=== PATIENT | male | born 1945 | race Caucasian/White ===

== ENCOUNTER 2021-06-16 18:51 | Outpatient (CLI) | payer OTHER, SELFPAY ==
[2021-06-19 12:14] LABS: PSA, Ultrasensitive 0.99 ng/mL (<= 6.5)
== END 2021-06-16 18:52 | disposition home or self-care (01) ==
LOC: LBO 19:05
PROVIDERS: PCP Internal Medicine; Visit Provider Urology
DX: C61 Malignant neoplasm of prostate (principal)
CPT/HCPCS: 36415; 84153

== ENCOUNTER 2023-04-10 13:44 | Outpatient (CLI) | payer OTHER, SELFPAY ==
[2023-04-10 14:18] LABS: Abs Immature Grans 0.21 10^3/uL (0.0-0.06); Absolute Basophil Count 0.05 10^3/uL (0.0-0.2); Absolute Eosinophil Count 0.04 10^3/uL (0.0-0.7); Absolute Lymphocyte Count 0.57 10^3/uL (1.2-3.4); Absolute Monocyte Count 0.54 10^3/uL (0.1-0.8); Basophils % 0.7; Eosinophils % 0.5; HCT 40.8 % (40.0-50.0); HGB 12.7 g/dL (13.5-17.5); Immature Grans % 2.8; Lymphocytes % 7.7; MCH 24.3 pg (27.0-33.0); MCHC 31.1 % (32.0-36.0); MCV 78 fL (80-95); MPV 9.8 fL (8.0-11.0); Monocytes % 7.3; Platelet Count 225 10^3/uL (130-400); RBC 5.22 10^6/uL (4.36-5.78); RDW 16.6 % (11.8-14.1); RDW-SD 45.1 fL; WBC 7.41 10^3/uL (4.4-10.8)
[2023-04-10 15:24] LABS: ALT 22 U/L (16-63); AST 16 U/L (15-37); Albumin 3.9 g/dL (3.4-5.0); Alkaline Phosphatase 161 U/L (46-116); Anion Gap 11.2 mmol/L (3-11); BUN 19 mg/dL (7-18); Bilirubin, Total 0.7 mg/dL (0.2-1.0); CO2 24.8 mmol/L (21.0-32.0); CREATININE 1.5 mg/dL (0.70-1.30); Calcium 9.1 mg/dL (8.5-10.1); Chloride 104 mmol/L (98-107); Estimated GFR 47.95 (mL/min/1.73m2); Glucose 130 mg/dL (74-106); Potassium 4.4 mmol/L (3.5-5.1); Sodium 140 mmol/L (136-145)
[2023-04-12 12:14] LABS: PSA, Ultrasensitive 8.5 ng/mL (<= 6.5)
[2023-04-14 16:25] LABS: Testosterone, Total 180 ng/dL (240-950)
== END 2023-04-10 13:45 ==
PROVIDERS: PCP Internal Medicine; Visit Provider Radiology Radiation Oncology
DX: C61 Malignant neoplasm of prostate (principal)
CPT/HCPCS: 36415; 80053; 84153; 84403; 85025

== ENCOUNTER → 2023-04-24 00:56 | Outpatient (CLI) | payer OTHER, SELFPAY ==
[2023-04-24] MEDS: Normal Saline - Diluent 50 ML VIAL IJ (11:06)
[2023-04-24] MEDS: Omnipaque 350 MG/ML 500 ML BTL-Imaging package 100 ML IJ (11:07)
[2023-04-24 11:10] LABS: Abs Immature Grans 0.18 10^3/uL (0.0-0.06); Absolute Basophil Count 0.03 10^3/uL (0.0-0.2); Absolute Eosinophil Count 0.12 10^3/uL (0.0-0.7); Absolute Lymphocyte Count 0.49 10^3/uL (1.2-3.4); Absolute Monocyte Count 0.52 10^3/uL (0.1-0.8); Basophils % 0.4; Eosinophils % 1.8; HCT 38.5 % (40.0-50.0); HGB 11.6 g/dL (13.5-17.5); Immature Grans % 2.6; Lymphocytes % 7.2; MCH 23.9 pg (27.0-33.0); MCHC 30.1 % (32.0-36.0); MCV 79 fL (80-95); MPV 9.9 fL (8.0-11.0); Monocytes % 7.6; Neutrophils % 80.4; Platelet Count 208 10^3/uL (130-400); RBC 4.86 10^6/uL (4.36-5.78); RDW-SD 45.7 fL; WBC 6.84 10^3/uL (4.4-10.8)
[2023-04-24 11:28] LABS: ALT 69 U/L (16-63); AST 17 U/L (15-37); Albumin 3.6 g/dL (3.4-5.0); Alkaline Phosphatase 184 U/L (46-116); Anion Gap 8.6 mmol/L (3-11); BUN 18 mg/dL (7-18); Bilirubin, Total 0.6 mg/dL (0.2-1.0); CO2 27.4 mmol/L (21.0-32.0); CREATININE 1.5 mg/dL (0.70-1.30); Calcium 8.6 mg/dL (8.5-10.1); Chloride 104 mmol/L (98-107); Estimated GFR 47.95 (mL/min/1.73m2); Glucose 108 mg/dL (74-106); Potassium 4.4 mmol/L (3.5-5.1); Sodium 140 mmol/L (136-145); Total Protein 7.2 g/dL (6.4-8.2)
--- NOTE | 2023-04-24 11:30 | DI.CT_ITS ---
Exam(s) CT ABDOMEN WO/W EXAM: CT ABDOMEN WO/W CLINICAL HISTORY: [id number] C61 Prostate cancer; E27.8 Adrenal nodule TECHNIQUE: COMPARISON: Prior outside CT ABD/PELVIS W CONTRAST from 12/01/2020 FINDINGS: This scan is limited to the abdomen. Pelvis was not scanned. LUNG BASES: Some scarring in the left lung base is unchanged as well as some atelectasis in the righ t lung base. There are no pleural effusions. No ominous masses in the visualized lung bases. ADRENALS: The previously described lobulated nodule in left adrenal gland is unchanged in size and co nfiguration from 2020 and therefore benign, most probably an adenoma. This measures 1.7 cm wide by 1 .7 cm AP by 2.5 cm craniocaudal, unchanged from previous study. I remeasured this adrenal nodule on the 2020 scanned today on our PACS. The opposite-right adrenal gland remains unremarkable. Liver: Unchanged. No new focal findings. No dilated intrahepatic ducts. Biliary: No obvious gallbladder pathology. CBD is not dilated. Pancreas: No masses nor parenchymal calcifications. No cysts. No dilation of the pancreatic duct. No peripancreatic fluid Spleen: The spleen size is again noted be mildly enlarged, measuring 14.7 cm craniocaudal by 6 cm wid e, as measured on the coronal images. This is unchanged from previous. There are no intrasplenic le sions. The splenic and portal veins are patent. Kidneys: There is presently no longer hydronephrosis nor dilatation of the partially visualized upper ureters (please note that the lower ureters and urinary bladder are not included in the field of vie w of this abdomen only study). There is a parapelvic cyst in the left kidney again noted measuring 3 .5 x 2.7 cm on today's study, similar to previous. A smaller cortical cyst in the posterior cortex o f the right kidney measuring 1 cm is again noted. These benign renal cysts do not require further wo rkup. There are no new solid renal lesions. No calculi seen in the kidneys. Abdominal aorta: Moderately atherosclerotic. No significant aneurysm. Maximum diameter of the abdom inal aorta is is 2.6 cm on today's study. Lymph nodes: There is no para-aortic nor retroperitoneal adenopathy. No mesenteric adenopathy. No a bnormal mesenteric masses. GI: No evidence of bowel obstruction. Osseous: No fractures. No osseous lesions. IMPRESSION: 1. The previously described left adrenal nodule evident on the CT scan can 12/01/2020 is unchanged in size and configuration, again measuring 17 x 17 x 25 mm (as measured by myself on both the new and o ld studies today) and is therefore a benign adenoma. The opposite-right adrenal gland remains unrema rkable. 2. Previously present bilateral hydronephrosis is no longer seen. Today's abdomen only study does no t include the previously abnormal appearing urinary bladder. 3. Splenomegaly again noted. No enlarged lymph nodes noted within the field of view of this abdomen study. Also no ascites.
[2023-04-26 15:28] LABS: PSA, Ultrasensitive 8.5 ng/mL (<= 6.5)
[2023-04-29 12:32] LABS: Testosterone, Total 159 ng/dL (240-950)
== END ==
PROVIDERS: PCP Internal Medicine; Visit Provider Radiology Radiation Oncology
DX: E27.8 Other specified disorders of adrenal gland (principal); C61 Malignant neoplasm of prostate
CPT/HCPCS: 80053; 84153; 84403; 74170; 85025